=== PATIENT | male | born 1995 | race African-American/Black ===

== ENCOUNTER 2017-04-10 16:50 | Emergency (ER) | payer SELFPAY ==
--- NOTE | 2017-04-10 18:22 | NUR ---
CALLED PT FOR TRIAGE, NO ANSWER X2.
--- NOTE | 2017-04-10 18:45 | NUR ---
PATIENT LEFT WITHOUT BEING SEEN BY DR. IYER. NO FURTHER CARE PROVIDED FOR PATIENT.
== END 2017-04-10 18:45 | disposition left against medical advice (07) ==
LOC: MED 16:50
DX: H57.10 Ocular pain, unspecified eye (principal); Z53.21 Procedure and treatment not carried out due to patient leaving prior to being seen by health care provider